=== PATIENT | male | born 1940 | race Caucasian/White ===

== ENCOUNTER 2019-10-17 07:43 | Inpatient (IN) ==
[2019-10-17] MEDS ORDERED: IOPAMIDOL 100 ML BOTTLE IV ONE (07:44)
[2019-10-17] MEDS ORDERED: 0.9 % SODIUM CHLORIDE 1,000 ML IV ONE ×2 (08:04→14:04)
--- NOTE | 2019-10-17 08:27 | Emergency Department Note ---
HPI General Chief complaint: Weakness Stated complaint: Weak and shaky Time Seen by Provider: 10/17/19 08:01 Source: EMS Mode of arrival: EMS Limitations: no limitations History of Present Illness HPI Narrative: This pleasant 79-year-old male comes the emergency room describing that about 1/2-hour after waking up he had an episode of shakiness that was involving his arms and legs and may be a little trunk. Duration lasted until he arrived here in a few minutes after. He has had no previous similar ep isodes. He did not feel ill. His only medication is cephalexin which he was taking for a dental abscess and extraction scheduled tomorrow. Sometimes his pain has been significant for this but only at night. Last night it actually seem to be a bit better. He did take his cephalexin and did take ibuprofen. He takes ibuprofen intermittently at times for some more shoulder neck pain. He denies a foul taste in his mouth. He denies fevers, chills, sweats. Related Data Home Medications Medication Instructions Recorded Confirmed cephalexin [Keflex] 500 mg PO BID 10/17/19 10/17/19 Allergies Allergy/AdvReac Type Severity Reaction Status Date / Time No Known Drug Allergies Allergy Verified 10/17/19 07:44 Review of Systems ROS Narrative: Denies chest pain palpitations Denies cough shortness of breath denies abdominal pain nausea vomiting diarrhea denies dysuria. Has mild or slight weakness he attributes to age. Has occasional dizziness. Had vertigo years ago. Denies anxiety and depression. [facility] Narrative Patient History Narrative: NEGATIVE FOR MEDICAL HISTORY OF: Cancer hypertension (usually is low), myocardial infarction, DVT, PE, CVA, TIA, anxiety, depression. Medical/Surgical/Family History All Active Problems (Updated 10/17/19 @ 08:47 by Thomas Duron DO) Shakiness (Acute) Abnormal ECG (Acute) Sinus tachycardia (Acute) Surgical History (Updated 10/17/19 @ 08:24 by Thomas Duron DO) History of left knee surgery (Acute 1955) Cartilage repair or removal Social History Smoking Status: Smokeless tobacco Exam Narrative Narrative: Narrative: General Limitations: no limitations General appearance: alert, in no apparent distress and nontoxic Head Head: atraumatic and normocephalic Eye Eye: Present normal appearance, PERRL and EOMI ENT ENT: Present normal oropharynx, mucous membranes moist and other (Small particles of oral chewing tobacco present.) Neck Neck: Present trachea midline; Absent lymphadenopathy and thyromegaly Chest Chest: Present symmetric chest wall rise Respiratory Respiratory: Present normal lung sounds bilaterally; Absent respiratory distress, rales/crackles, wheezes, stridor, accessory muscle use and prolonged expiratory phase Cardiovascular Cardiovascular: Present regular rate, normal rhythm and tachycardia; Absent systolic murmur and diastolic murmur Adbominal Abdominal: Present soft; Absent distention, tenderness, guarding, rebound, rigidity, organomegaly and mass Extremities Extremities: Present normal capillary refill; Absent pedal edema, pretibial edema, calf tenderness and cyanosis Back Back: Absent CVA tenderness (R), CVA tenderness (L) and vertebral tenderness Neurological Neurological: Present alert and oriented X3 Psychiatric Psychiatric: Present normal affect, polite and pleasant; Absent depressed, agitated, anxious and poor eye contact Skin Skin: Present warm and dry; Absent cyanosis and pallor Course Vital Signs Vital signs: Vital Signs Temperature 98.2 F 10/17/19 07:45 Pulse Rate 104 H 10/17/19 07:45 Respiratory Rate 16 10/17/19 07:45 Blood Pressure 174/147 10/17/19 07:45 Pulse Oximetry (%) 100 10/17/19 07:45 Temperature 98.2 F 10/17/19 07:45 Pulse Rate 104 H 10/17/19 07:45 Respiratory Rate 16 10/17/19 07:45 Blood Pressure 174/147 10/17/19 07:45 Pulse Oximetry (%) 100 10/17/19 07:45 [facility] MDM Narrative Medical decision making narrative: Single episode of shakiness this morning with somewhat prolonged and no preceding sign or symptom. Is under treatment for a dental abscess. Will need to do some labs. Has accompanying tachycardia. EKG and chest x-ray also ordered as well as troponin. EKG demonstrates sinus tachycardia with repolarization abnormalities in the anterolateral leads. No old EKGs immediately available; possibly in [place]. 9:00 PM - due to change in shift, patient's care will be transferred to Dr. Sahu. Lab Data Result diagrams: 10/17/19 08:17 10/17/19 08:17 Discharge Plan Patient/Caregiver Discharge Instructions Pt seen by GLASS FURNACE TENDER/PA only: No Clinical Impression: Shakiness, Abnormal ECG, Sinus tachycardia Patient Disposition: Home, Self-Care Prescriptions: No Action cephalexin [Keflex] 500 mg Capsule 500 mg PO BID RF: 0
--- NOTE | 2019-10-17 09:01 | XRay Report ---
HISTORY: Increased weakness and shakiness FINDINGS: The lungs are clear and well-expanded. The heart size, pulmonary vasculature, mediastinum, martir and pleura are normal. IMPRESSION: Normal exam Interpreted and Authenticated by: Duong Reyes 10/17/19
[2019-10-17] MEDS ORDERED: ACETAMINOPHEN 325 MG TABLET PO ONE (09:07)
[2019-10-17 09:13] LABS: Basophils # (Auto) 0.02 K/mcL (0.00-0.30); Basophils % (Auto) 0.3 % (0.0-2.0); Eosinophils # (Auto) 0.04 K/mcL (0.00-0.70); Eosinophils % (Auto) 0.5 % (0.0-7.0); Granulocytes % (Auto) 90.8 % (38.0-78.0); Hematocrit 44.3 % (40.1-51.0); Hemoglobin 15.5 g/dL (13.7-17.5); Lymphocytes # (Auto) 0.55 K/mcL (1.50-4.80); Lymphocytes % (Auto) 7.3 % (15.5-49.0); Mean Cell Volume 94.3 fL (80.0-100.0); Mean Platelet Volume 9.5 fL (7.4-10.4); Monocytes # (Auto) 0.08 K/mcL (0.10-0.90); Monocytes % (Auto) 1.1 % (1.0-12.0); Platelet Count 142 K/mcL (140-440); Red Cell Distribution Width 13.4 % (11.5-14.5); WBC 7.6 K/mcL (4.50-11.00)
[2019-10-17 09:31] LABS: proBNP < 50.0 pg/ml (0-450)
[2019-10-17 09:35] LABS: ALT/SGPT 25 U/l (0-40); AST/SGOT 29 U/l (0-37); Albumin/Globulin Ratio 1.5 (1.0-2.3); Alkaline Phosphatase 85 U/L (39-117); Blood Urea Nitrogen 10 mg/dl (8-23); Calcium 9.4 mg/dl (8.6-10.4); Carbon Dioxide 20 mmol/L (22-30); Chloride 104 mmol/L (96-108); Globulin 2.7 gm/dL (2.2-3.7); Glomerular Filtration Rate 80; Glucose 170 mg/dL (70-105)
[2019-10-17] MEDS ORDERED: cefTRIAXone 1 GM VIAL IV ONE (10:36)
--- NOTE | 2019-10-17 12:22 | Emergency Department Note ---
HPI General Chief complaint: Weakness Stated complaint: Weak and shaky Time Seen by Provider: 10/17/19 08:01 Source: EMS Mode of arrival: EMS Limitations: no limitations History of Present Illness HPI Narrative: Narrative: Received this patient in checkout from Dr. Duron at shift change. I reviewed his note Briefly discussed with patient symptomatology. He denies any chest pain or recent illness. However he does note diaphoresis and chills this morning although he was not aware of his fever. Related Data Home Medications Medication Instructions Recorded Confirmed cephalexin [Keflex] 500 mg PO BID 10/17/19 10/17/19 Allergies Allergy/AdvReac Type Severity Reaction Status Date / Time No Known Drug Allergies Allergy Verified 10/17/19 07:44 Review of Systems ROS Narrative: Narrative: [facility] Narrative Patient History Narrative: Narrative: Medical/Surgical/Family History All Active Problems (Updated 10/17/19 @ 14:00 by Hussein Sahu MD) Sinus tachycardia (Acute) Abscess, dental (Acute) COVID-19 virus test result unknown (Acute) Sepsis associated hypotension (Acute) Surgical History (Updated 10/17/19 @ 08:24 by Thomas Duron DO) History of left knee surgery (Acute 1955) Cartilage repair or removal Social History Smoking Status: Smokeless tobacco Exam Narrative Narrative: Narrative: General Limitations: no limitations General appearance: alert, in no apparent distress and nontoxic Course Vital Signs Vital signs: Vital Signs Temperature 98.2 F 10/17/19 07:45 Pulse Rate 104 H 10/17/19 07:45 Respiratory Rate 16 10/17/19 07:45 Blood Pressure 174/147 10/17/19 07:45 Pulse Oximetry (%) 100 10/17/19 07:45 Temperature 100.6 F H 10/17/19 09:13 Pulse Rate 88 10/17/19 13:33 Respiratory Rate 19 10/17/19 13:33 Blood Pressure 104/55 10/17/19 13:33 Pulse Oximetry (%) 94 10/17/19 13:33 MDM MDM Narrative Medical decision making narrative: Narrative: After getting checkout from Dr. Duron, I reviewed the patient's chart. I also reevaluated the patient looked at his teeth. I do not see an obvious abscess to surgically drained today. He does have multiple caries and gingival inflammation. He clearly has a fever today at 100.6. He has been taking Keflex but his symptoms are getting worse. We will go ahead and give him a dose of Rocephin for the presumptive bacterial abscess/inflammation and test him for the COVID virus-keep him on precaution. It is noted the patient did not have a fever when he came in was initially seen and evaluated without precautions. The patient denies any chest pain or trouble breathing, only notes weakness and above-noted symptoms. I discussed the situation with Dr. Mike Gonzalez DDS -he has 3 offices and is in [place] today-the patient was going to get tooth pulled tomorrow up in [place]. Anyways Dr. Gonzalez and I felt the the patient should put this off until he recovers from the fever of unclear cause. Will order a urinalysis as well to further sort this out. Chest x-ray is normal and his labs do not look particularly worrisome. We will CT his face Laboratory shows no leukocytosis or lactic acidosis. CT scan of the face is hindered by dental metal fillings but from what he can see the radiologist noted no significant abscesses. Urinalysis was negative. So adjusted differential diagnosis is COVID virus infection versus other viral infection versus dental abscess. However on reevaluation his blood pressure had dropped-concern for sepsis. He had already received antibiotics. We will order blood culture and consult hospitalist Discussed with our hospitalist Dr. Leon and the patient. Hospitalist agreed to accept the patient. Lab Data Lab results reviewed: Yes I reviewed the patient's lab results. Result diagrams: 10/17/19 08:17 10/17/19 08:17 Labs: Lab Results 10/17/19 10/17/19 10/17/19 Range/Units 08:17 08:17 08:17 WBC 7.6 (4.50-11.00) K/mcL RBC 4.70 (4.63-6.08) M/mcL Hgb 15.5 (13.7-17.5) g/dL Hct 44.3 (40.1-51.0) % MCV 94.3 (80.0-100.0) fL MCH 33.0 (26.0-34.0) pg MCHC 35.0 (31.0-36.0) g/dL RDW 13.4 (11.5-14.5) % Plt Count 142 (140-440) K/mcL MPV 9.5 (7.4-10.4) fL Gran % 90.8 H (38.0-78.0) % Lymph % (Auto) 7.3 L (15.5-49.0) % [place] % (Auto) 1.1 (1.0-12.0) % Eos % (Auto) 0.5 (0.0-7.0) % Baso % (Auto) 0.3 (0.0-2.0) % Gran # 6.87 (1.80-8.00) K/mcL Lymph # (Auto) 0.55 L (1.50-4.80) K/mcL [place] # (Auto) 0.08 L (0.10-0.90) K/mcL Eos # (Auto) 0.04 (0.00-0.70) K/mcL Baso # (Auto) 0.02 (0.00-0.30) K/mcL VBG Lactic Acid 1.9 (0.5-2.0) mmol/L Sodium 139 (133-145) mmol/L Potassium 3.7 (3.3-5.1) mmol/L Chloride 104 (96-108) mmol/L Carbon Dioxide 20 L (22-30) mmol/L Anion Gap 15.0 (8-16) BUN 10 (8-23) mg/dl Creatinine 0.9 (0.7-1.2) mg/dl GFR Calculation 80 Glucose 170 H (70-105) mg/dL Calcium 9.4 (8.6-10.4) mg/dl Total Bilirubin 1.0 (0.0-1.0) mg/dL AST 29 (0-37) U/l ALT 25 (0-40) U/l Alkaline Phosphatase 85 (39-117) U/L Troponin T (0-0.03) ng/ml NT-Pro-B Natriuret Pep < 50.0 (0-450) pg/ml Total Protein 6.7 (5.9-8.4) gm/dL Albumin 4.0 (3.2-5.2) gm/dL Globulin 2.7 (2.2-3.7) gm/dL Albumin/Globulin Ratio 1.5 (1.0-2.3) Urine Color Urine Appearance Urine pH (5.0-9.0) Ur Specific [place] (1.000-1.035) Urine Protein (NEG) mg/dL Urine Glucose (UA) (NEG) mg/dL Urine Ketones (NEG) mg/dL Urine Occult Blood (<0.03) mg/dL Urine Nitrate (NEG) Urine Bilirubin (NEG) mg/dL Urine Urobilinogen (NEG) mg/dL Ur Leukocyte Esterase (NEG) /uL Urine RBC (0-1) /hpf Urine WBC (0-4) /hpf Ur Squamous Epith Cells (0-4) /hpf Urine Bacteria (0) /hpf Hyaline Casts (0-2) /lpf Urine Mucus (0) /hpf Ur Culture Indicated? 10/17/19 10/17/19 Range/Units 08:17 10:57 WBC (4.50-11.00) K/mcL RBC (4.63-6.08) M/mcL Hgb (13.7-17.5) g/dL Hct (40.1-51.0) % MCV (80.0-100.0) fL MCH (26.0-34.0) pg MCHC (31.0-36.0) g/dL RDW (11.5-14.5) % Plt Count (140-440) K/mcL MPV (7.4-10.4) fL Gran % (38.0-78.0) % Lymph % (Auto) (15.5-49.0) % [place] % (Auto) (1.0-12.0) % Eos % (Auto) (0.0-7.0) % Baso % (Auto) (0.0-2.0) % Gran # (1.80-8.00) K/mcL Lymph # (Auto) (1.50-4.80) K/mcL [place] # (Auto) (0.10-0.90) K/mcL Eos # (Auto) (0.00-0.70) K/mcL Baso # (Auto) (0.00-0.30) K/mcL VBG Lactic Acid (0.5-2.0) mmol/L Sodium (133-145) mmol/L Potassium (3.3-5.1) mmol/L Chloride (96-108) mmol/L Carbon Dioxide (22-30) mmol/L Anion Gap (8-16) BUN (8-23) mg/dl Creatinine (0.7-1.2) mg/dl GFR Calculation Glucose (70-105) mg/dL Calcium (8.6-10.4) mg/dl Total Bilirubin (0.0-1.0) mg/dL AST (0-37) U/l ALT (0-40) U/l Alkaline Phosphatase (39-117) U/L Troponin T < 0.01 (0-0.03) ng/ml NT-Pro-B Natriuret Pep (0-450) pg/ml Total Protein (5.9-8.4) gm/dL Albumin (3.2-5.2) gm/dL Globulin (2.2-3.7) gm/dL Albumin/Globulin Ratio (1.0-2.3) Urine Color Yellow Urine Appearance Clear Urine pH 5.0 (5.0-9.0) Ur Specific [place] 1.014 (1.000-1.035) Urine Protein Neg (NEG) mg/dL Urine Glucose (UA) Negative (NEG) mg/dL Urine Ketones 5/tr A (NEG) mg/dL Urine Occult Blood Neg (<0.03) mg/dL Urine Nitrate Neg (NEG) Urine Bilirubin Neg (NEG) mg/dL Urine Urobilinogen Neg (NEG) mg/dL Ur Leukocyte Esterase Neg (NEG) /uL Urine RBC 1 (0-1) /hpf Urine WBC 2 (0-4) /hpf Ur Squamous Epith Cells 1 (0-4) /hpf Urine Bacteria 0 (0) /hpf Hyaline Casts 5 H (0-2) /lpf Urine Mucus Mod (0) /hpf Ur Culture Indicated? No Radiology Data Radiology results reviewed: Yes I reviewed the patient's radiology results. Radiology results narrative: Chest x-ray is normal CT scan of the face shows no acute abscess but multiple areas are obscured by dental metal fillings EKG Data EKG #1: EKG attestation: Yes I reviewed and interpreted this EKG. EKG results narrative: EKG #[address] depression in V4 through V6 this is nonspecific and could just indicate strain but he also has a in lead I and aVL. Not having chest pain or shortness of breath however. Troponin is likewise normal EKG #2: EKG attestation: Yes I reviewed and interpreted this EKG. EKG results narrative: EKG #2 is similar to the one but ST changes are less prominent in the anterolateral leads; again nonspecific Discharge Plan Patient/Caregiver Discharge Instructions Pt seen by MUTUEL CLERK/PA only: No Clinical Impression: Sinus tachycardia, COVID-19 virus test result unknown, Sepsis associated hypot ension, Abscess, dental Patient Disposition: Xfer As Inpt ([facility]) Prescriptions: No Action cephalexin [Keflex] 500 mg Capsule 500 mg PO BID RF: 0
[2019-10-17 12:30] LABS: Appearance,Urine CLEAR; Bacteria,Urine 0 /hpf (0); Bilirubin,Urine NEG (NEG); Color,Urine YELLOW; Culture Indicated,Urine NO; Glucose,Urine (UA) NEGATIVE (NEG); Ketones,Urine 5/TR mg/dL (NEG); Leukocyte Esterase,Urine NEG /uL (NEG); Mucus,Urine MOD /hpf (0); Nitrate,Urine NEG (NEG); Protein,Urine NEG (NEG); Specific Gravity,Urine 1.014 (1.000-1.035); Urine Blood NEG mg/dL (<0.03); Urine Hyaline Cast 5 /lpf (0-2); Urine RBC 1 /hpf (0-1); Urine Squamous Epithelial Cell 1 /hpf (0-4); Urine WBC 2 /hpf (0-4); Urobilinogen,Urine NEG (NEG)
--- NOTE | 2019-10-17 13:20 | Cat Scan Report ---
History: Dental abscess and fever TECHNIQUE: The face was imaged following injection of intravenous contrast at 2.5 mm intervals. Sagittal and coronal reformats were created. The radiation exposure was limited using dose reduction technology. FINDINGS: There are numerous large metal caps and amalgam in the teeth in both maxilla and mandible. This is causing significant beam hardening artifact and limits evaluation of the teeth. No dental abscess can be clearly identified. There is no evidence of a soft tissue abscess in the face. No abnormally enlarged lymph nodes are present. The sinuses are clear normally aerated. The parapharyngeal spaces are normal. Incidentally noted are unerupted third molars in both sides of the mandible. 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 Patient has spinal canal stenosis at C5-6 and there is severe stenosis of the neural foramina bilaterally at site C5-6. There is moderate stenosis of the left-sided neural foramen at C4-5 and moderate stenosis bilaterally at C3-4. No enhancing lesion is seen in the neck and face or visualized portion of the brain. IMPRESSION: No evidence of facial abscess. Infection around a tooth cannot be clearly identified due to metal in the mouth Neural foraminal and central canal stenosis in the upper cervical spine Interpreted and Authenticated by: Duong Reyes 10/17/19
--- NOTE | 2019-10-17 14:44 | Internal Med History&Physical ---
HPI History of Present Illness Patient information: Note initiated : 10/17/19 at 2:35 pm Service Date, if different from initiated Date: [] Patient: Fausto Hess a 79 y/o M admitted on for Deb and Sathyaky. Chief Complaint: [] History of present illness: Mr. Hess is a 79 year old M Who presents the ED after shaking chills. Patient reports that he saw his dentist about a week ago for a tooth infection and was evaluated and started on Keflex for 7-day course. His tooth typically been bothering him but finally started to feel better and last night it finally did not bother him as typically does. He woke up feeling fine. However while sitting down drinking this morning drinking his coffee he had significant shivering and then put on a blanket and still had shivering. In the ED he was evaluated and had essentially unremarkable laboratory. However he did have a fever of 100.6. His blood pressure initially was 128 systolic and then subsequent was in the 90s and then did bump up to the 110s again in a dropped down to 86. And the ED p hysician was worried about developing sepsis and requested admission. Patient denies any nausea or vomiting or abdominal pain or diarrhea since the antibiotics started. Denies any urinary normalities. He denies any chest pain coughing or shortness of breath or any other respiratory symptoms. Review of Systems: Pertinent positives as above. Denies headache/nausea/vomiting/chest or abdominal pain/cough/dyspnea/diarrhea. Remaining 10 point review of system reviewed negative PFSH PFSH Surgical History (Updated 10/17/19 @ 08:24 by Thomas Duron DO) History of left knee surgery (Acute 1955) Cartilage repair or removal Social History (Updated 10/17/19 @ 14:40 by Raul Leon DO) smoking status: Smokeless tobacco additional history: Past medical history: BPH Family history: Mother had asthma and father is healthy Social history: Patient uses smokeless tobacco Has 2-3 beers per week Lives at home with his MEDS/ALLERGIES Home Medications and Allergies Home Medications Medication Instructions Recorded Confirmed Type cephalexin [Keflex] 500 mg PO BID 10/17/19 10/17/19 History Allergies Allergy/AdvReac Type Severity Reaction Status Date / Time No Known Drug Allergies Allergy Verified 10/17/19 07:44 EXAM Constitutional Vitals: Temp Pulse Resp BP Pulse Ox 100.6 F H 88 19 105/58 94 10/17/19 09:13 10/17/19 13:33 10/17/19 13:33 10/17/19 14:02 10/17/19 13:33 Exam: General: Alert, Awake, No acute Distress Eyes/N/T: EOMI, PERRL, Head/Neck: neck supple, normocephalic atraumatic CV: RRR, No murmurs, normal s1/s2 Pulm: Clear b/l, no wheezing/rhonchi/rales Abd: soft, nontender, +BS x4 Ext: no clubbing/cyanosis/edema Neuro: Alert, no focal deficits, moves all extremities, CN 2-12 grossly intact, symmetrical strength b/l upper/lower, sensations intact b/l upper/lower Skin: warm/dry DATA Data Completed and Pending Labs on day of discharge: Labs from last 24 hours 10/17/19 10/17/19 10/17/19 14:11 14:11 10:57 WBC RBC Hgb Hct MCV MCH MCHC RDW Plt Count MPV Gran % Lymph % (Auto) [place] % (Auto) Eos % (Auto) Baso % (Auto) Gran # Lymph # (Auto) [place] # (Auto) Eos # (Auto) Baso # (Auto) Total Counted Pending Band Neutrophils % Not Reportable Platelet Estimate Pending RBC Morphology Pending VBG Lactic Acid Sodium Potassium Chloride Carbon Dioxide Anion Gap BUN Creatinine GFR Calculation Glucose Calcium Total Bilirubin AST ALT Alkaline Phosphatase Troponin T C-Reactive Protein Pending NT-Pro-B Natriuret Pep Total Protein Albumin Globulin Albumin/Globulin Ratio Urine Color Yellow Urine Appearance Clear Urine pH 5.0 Ur Specific [place] 1.014 Urine Protein Neg Urine Glucose (UA) Negative Urine Ketones 5/tr A Urine Occult Blood Neg Urine Nitrate Neg Urine Bilirubin Neg Urine Urobilinogen Neg Ur Leukocyte Esterase Neg Urine RBC 1 Urine WBC 2 Ur Squamous Epith Cells 1 Urine Bacteria 0 Hyaline Casts 5 H Urine Mucus Mod Ur Culture Indicated? No Nasal/Oral COVID-19 PCR COVID-19 PCR Interp 10/17/19 10/17/19 10/17/19 10:22 08:17 08:17 WBC RBC Hgb Hct MCV MCH MCHC RDW Plt Count MPV Gran % Lymph % (Auto) [place] % (Auto) Eos % (Auto) Baso % (Auto) Gran # Lymph # (Auto) [place] # (Auto) Eos # (Auto) Baso # (Auto) Total Counted Band Neutrophils % Platelet Estimate RBC Morphology VBG Lactic Acid 1.9 Sodium Potassium Chloride Carbon Dioxide Anion Gap BUN Creatinine GFR Calculation Glucose Calcium Total Bilirubin AST ALT Alkaline Phosphatase Troponin T < 0.01 C-Reactive Protein NT-Pro-B Natriuret Pep Total Protein Albumin Globulin Albumin/Globulin Ratio Urine Color Urine Appearance Urine pH Ur Specific [place] Urine Protein Urine Glucose (UA) Urine Ketones Urine Occult Blood Urine Nitrate Urine Bilirubin Urine Urobilinogen Ur Leukocyte Esterase Urine RBC Urine WBC Ur Squamous Epith Cells Urine Bacteria Hyaline Casts Urine Mucus Ur Culture Indicated? Nasal/Oral COVID-19 PCR Pending COVID-19 PCR Interp Pending 10/17/19 10/17/19 08:17 08:17 WBC 7.6 RBC 4.70 Hgb 15.5 Hct 44.3 MCV 94.3 MCH 33.0 MCHC 35.0 RDW 13.4 Plt Count 142 MPV 9.5 Gran % 90.8 H Lymph % (Auto) 7.3 L [place] % (Auto) 1.1 Eos % (Auto) 0.5 Baso % (Auto) 0.3 Gran # 6.87 Lymph # (Auto) 0.55 L [place] # (Auto) 0.08 L Eos # (Auto) 0.04 Baso # (Auto) 0.02 Total Counted Band Neutrophils % Platelet Estimate RBC Morphology VBG Lactic Acid Sodium 139 Potassium 3.7 Chloride 104 Carbon Dioxide 20 L Anion Gap 15.0 BUN 10 Creatinine 0.9 GFR Calculation 80 Glucose 170 H Calcium 9.4 Total Bilirubin 1.0 AST 29 ALT 25 Alkaline Phosphatase 85 Troponin T C-Reactive Protein NT-Pro-B Natriuret Pep < 50.0 Total Protein 6.7 Albumin 4.0 Globulin 2.7 Albumin/Globulin Ratio 1.5 Urine Color Urine Appearance Urine pH Ur Specific [place] Urine Protein Urine Glucose (UA) Urine Ketones Urine Occult Blood Urine Nitrate Urine Bilirubin Urine Urobilinogen Ur Leukocyte Esterase Urine RBC Urine WBC Ur Squamous Epith Cells Urine Bacteria Hyaline Casts Urine Mucus Ur Culture Indicated? Nasal/Oral COVID-19 PCR COVID-19 PCR Interp A/P Narrative A/P Narrative: A: *Fever/sepsis: Source likely dental infection -Facial CT no abscess but could not rule out infection immediately around any teeth because of metal fillings. -was on keflex outpt for 7-days -CXR/UA unremarkable, no abd pain/GI or respiratory symptoms *Hypotension: 2/2 above, transient *BPH: P: -zosyn, await cx -mrsa pcr -ivf -check man diff and crp - -ppx: lovenox DNR Time Spent With Patient Time: Total time spent is greater than 50% in coordination of care (as documented) at patient's floor/unit and/or counseling patient:
[2019-10-17 15:45] LABS: Band Neutrophils % 22 % (0-10); Lymphocytes % 4 % (15-49); Monocytes % (Manual) 8 % (1-12); Platelet Estimate DECREASED (NORMAL); RBC Morphology NORMAL (NORMAL); Segmented Neutrophils % 66 % (38-78)
[2019-10-17] MEDS ORDERED: 0.9 % SODIUM CHLORIDE 1,000 ML IV SCH (16:05)
[2019-10-17] MEDS ORDERED: MAGNESIUM SULFATE 2 GM/50 ML BAG IV PRN (16:05)
[2019-10-17] MEDS ORDERED: PIPERACILLIN SODIUM/TAZOBACTAM 3.375 GM in DEXTROSE 5% IN WATER 50 ML IV SCH (16:05)
[2019-10-17] MEDS ORDERED: POTASSIUM CHLORIDE 40 MEQ in DEXTROSE 5% IN WATER 500 ML IV PRN (16:05)
[2019-10-17] MEDS ORDERED: POLYETHYLENE GLYCOL 3350 17 GM PACKET PO PRN (16:05)
[2019-10-17] MEDS ORDERED: POTASSIUM CHLORIDE 20 MEQ TABLET PO PRN ×2 (16:05)
[2019-10-17] MEDS ORDERED: ONDANSETRON 4 MG/2 ML VIAL IV PRN (16:05)
[2019-10-17] MEDS: 0.9 % SODIUM CHLORIDE 10 ML SYRINGE IV SCH (16:07)
[2019-10-17] MEDS: CEFEPIME 2 GM VIAL IV SCH (17:08)
[2019-10-17] MEDS: metroNIDAZOLE 500 MG/100 ML BAG IV SCH ×2 (17:08→22:55)
[2019-10-17] MEDS: ACETAMINOPHEN 325 MG TABLET PO PRN (18:49)
[2019-10-18] MEDS: 0.9 % SODIUM CHLORIDE 10 ML SYRINGE IV SCH ×4 (00:33→21:18)
[2019-10-18] MEDS: CEFEPIME 2 GM VIAL IV SCH ×3 (00:39→21:18)
[2019-10-18] MEDS: metroNIDAZOLE 500 MG/100 ML BAG IV SCH ×3 (05:33→21:18)
[2019-10-18] MEDS: ACETAMINOPHEN 325 MG TABLET PO PRN ×2 (05:40→20:25)
--- NOTE | 2019-10-18 07:14 | Internal Med Progress Note ---
SUBJECTIVE Subjective Patient information: Note initiated : 10/18/19 at 7:11 am Service Date, if different from initiated Date: [] Patient: Fausto Hess a 79 y/o M admitted on 10/17/19 for Weak and Shaky. Chief Complaint: [] Interval history: Narrative: Mr. Hess is a 79 year old M Who presents the ED after shaking chills. Patient reports that he saw his dentist about a week ago for a tooth infection and was evaluated and started on Keflex for 7-day course. His tooth typically been bothering him but finally started to feel better and last night it finally did not bother him as typically does. He woke up feeling fine. However while sitting down drinking this morning drinking his coffee he had significant shivering and then put on a blanket and still had shivering. In the ED he was evaluated and had essentially unremarkable laboratory. However he did have a fever of 100.6. His blood pressure initially was 128 systolic and then subsequent was in the 90s and then did bump up to the 110s again in a dropped down to 86. And the ED physician was worried about developing sepsis and requested admission. Patient denies any nausea or vomiting or abdominal pain or diarrhea since the antibiotics started. Denies any urinary normalities. He denies any chest pain coughing or shortness of breath or any other respiratory symptoms. 10/17 Slept relatively well last night. Feeling little better. No shaking chills this morning. Intermittent fever overnight. Morning labs pending. Yesterday's labs showed no leukocytosis but did show e levated bands. Constitutional Vitals: Vital Signs Temp Pulse Resp BP Pulse Ox 101.0 F H 73 16 106/61 94 10/18/19 05:40 10/18/19 04:22 10/17/19 16:04 10/18/19 04:01 10/18/19 04:22 Period Temp Pulse Resp BP Sys/Zamudio Pulse Ox Last 24 Hr 97.3 F-102.2 F 71-116 10-26 79-174/38-147 92-100 Intake and Output 10/17/19 10/18/19 10/18/19 21:59 05:59 13:59 Intake Total 1100 100 100 Output Total 300 250 Balance 800 -150 100 Weight 84.368 kg Intake & Output: Intake & Output 10/17/19 10/18/19 10/18/19 21:59 05:59 13:59 Intake Total 1100 100 100 Output Total 300 250 Balance 800 -150 100 Weight 84.368 kg Intake: IV 1100 100 100 Sodium Chloride 0.9% 1,000 ml @ 1000 Wide Open IV BOLUS ONE Rx#: [id number] Output: Void Amount 300 250 Other: Urine Appearance Clear Clear Urine Color Dark Yellow Dark Yellow # Voids 1 Exam: General: Alert, Awake, No acute Distress Eyes/N/T: EOMI, Head/Neck: neck supple, CV: RRR, 1/6 SM Pulm: Clear b/l, no wheezing/rhonchi/rales Abd: soft, nontender, +BS x4 Ext: no clubbing/cyanosis/edema Neuro: Alert, no focal deficits, moves all extremities, Skin: warm/dry OBJ DATA Labs CBC & Chem 7: 10/17/19 08:17 10/17/19 08:17 Labs: Abnormal Lab Results 10/17/19 10/17/19 10/17/19 14:11 14:11 10:57 Gran % Lymph % (Auto) Lymph # (Auto) [place] # (Auto) Band Neutrophils % 22 H Lymphocytes % 4 L Platelet Estimate Decreased A Carbon Dioxide Glucose C-Reactive Protein 1.8 H Urine Ketones 5/tr A Hyaline Casts 5 H 10/17/19 10/17/19 08:17 08:17 Gran % 90.8 H Lymph % (Auto) 7.3 L Lymph # (Auto) 0.55 L [place] # (Auto) 0.08 L Band Neutrophils % Lymphocytes % Platelet Estimate Carbon Dioxide 20 L Glucose 170 H C-Reactive Protein Urine Ketones Hyaline Casts Meds: Medications Acetaminophen (Tylenol) 650 mg PO Q6HP PRN PRN Reason: PAIN/FEVER > 101 Last Admin: 10/18/19 05:40 Dose: 650 mg Documented by: Cefepime HCl (Maxipime) 2 gm IV Q12H [facility] Last Admin: 10/18/19 00:39 Dose: 2 gm Documented by: Enoxaparin Sodium (Lovenox) 40 mg SQ DAILY [facility] Potassium Chloride 40 meq/ (Dextrose) 520 mls @ 130 mls/hr IV UD PRN PRN Reason: Potassium < 3 Magnesium Sulfate (Magnesium Sulfate) 2 gm in 50 mls @ 50 mls/hr IV UD PRN PRN Reason: Magnesium </= 1.6 Metronidazole (Flagyl) 500 mg in 100 mls @ 100 mls/hr IV Q8H [facility] Last Infusion: 10/18/19 06:48 Dose: Infused Documented by: Ondansetron HCl (Zofran) 4 mg IV Q4HP PRN PRN Reason: Nausea And Vomiting Polyethylene Glycol (Miralax) 17 gm PO DAILYP PRN PRN Reason: Constipation Last Admin: 10/17/19 19:45 Dose: 17 gm Documented by: Potassium Chloride (Kdur) 40 meq PO UD PRN PRN Reason: Potssium is 3-3.5 Potassium Chloride (Kdur) 40 meq PO UD PRN PRN Reason: Potassium < 3 Sodium Chloride (Saline Flush) 10 ml IV Q8 [facility] Last Admin: 10/18/19 05:33 Dose: Not Given Documented by: A/P Narrative A/P Narrative: A: *Fever/Sepsis: Source likely dental infection -Facial CT no abscess but could not rule out infection immediately around any teeth because of metal fillings. -was on keflex outpt for 7-days -CXR/UA unremarkable, no abd pain/GI or respiratory symptoms -bandemia *Hypotension, transient: 2/2 above, responded to IVF, systolic 90's-110's, pt says BP runs somewhat low normally *BPH: P: -Cefepime/Flagyl, await cx -mrsa pcr neg -ivf - -ppx: lovenox DNR Time Spent With Patient Time: Total time spent is greater than 50% in coordination of care (as documented) at patient's floor/unit and/or counseling patient: QUALITY Stroke Symptom Onset Unknown: No VTE Deep Vein Thrombosis/Pulmonary Embolism Present on Admission: No
[2019-10-18 07:52] LABS: ALT/SGPT 19 U/l (0-40); AST/SGOT 27 U/l (0-37); Albumin 3.2 gm/dL (3.2-5.2); Albumin/Globulin Ratio 1.3 (1.0-2.3); Alkaline Phosphatase 51 U/L (39-117); Bilirubin,Direct < 0.2 mg/dL (0.0-0.3); Bilirubin,Total 0.4 mg/dL (0.0-1.0); Blood Urea Nitrogen 11 mg/dl (8-23); Calcium 8.2 mg/dl (8.6-10.4); Carbon Dioxide 20 mmol/L (22-30); Chloride 106 mmol/L (96-108); Globulin 2.4 gm/dL (2.2-3.7); Glomerular Filtration Rate 80; Glucose 123 mg/dL (70-105); Lactate Dehydrogenase 180 U/L (94-250); Triglycerides 122 mg/dl (<150)
[2019-10-18] MEDS ORDERED: 0.9 % SODIUM CHLORIDE 500 ML IV ONE (07:55)
[2019-10-18 08:02] LABS: Phosphorous 2.3 mg/dL (2.7-4.5)
[2019-10-18 08:51] LABS: Band Neutrophils % 1 % (0-10); Lymphocytes % 5 % (15-49); Monocytes % (Manual) 3 % (1-12); Platelet Estimate DECREASED (NORMAL); RBC Morphology NORMAL (NORMAL); Segmented Neutrophils % 91 % (38-78)
[2019-10-18 08:52] LABS: Hematocrit 39.7 % (40.1-51.0); Hemoglobin 13.1 g/dL (13.7-17.5); Mean Cell Volume 98.3 fL (80.0-100.0); Platelet Count 105 K/mcL (140-440); RBC 4.04 M/mcL (4.63-6.08); Red Cell Distribution Width 14.6 % (11.5-14.5)
[2019-10-18] MEDS: ASPIRIN 81 MG TAB.CHEW PO SCH (10:06)
[2019-10-18] MEDS: ENOXAPARIN 40 MG/0.4 ML SYRINGE SQ SCH (10:06)
[2019-10-18] MEDS: DUTASTERIDE 0.5 MG CAPSULE PO SCH (10:06)
[2019-10-19] MEDS: metroNIDAZOLE 500 MG/100 ML BAG IV SCH (05:45)
[2019-10-19] MEDS: 0.9 % SODIUM CHLORIDE 10 ML SYRINGE IV SCH (05:46)
[2019-10-19 06:33] LABS: Hematocrit 38.3 % (40.1-51.0); Hemoglobin 12.9 g/dL (13.7-17.5); Mean Cell Volume 97.2 fL (80.0-100.0); Mean Corpuscular HGB Conc 33.7 g/dL (31.0-36.0); Mean Platelet Volume 10.2 fL (7.4-10.4); Platelet Count 97 K/mcL (140-440); RBC 3.94 M/mcL (4.63-6.08); Red Cell Distribution Width 14.6 % (11.5-14.5); WBC 7.6 K/mcL (4.50-11.00)
[2019-10-19 06:38] LABS: Blood Urea Nitrogen 10 mg/dl (8-23); Calcium 8.5 mg/dl (8.6-10.4); Carbon Dioxide 21 mmol/L (22-30); Chloride 103 mmol/L (96-108); Glomerular Filtration Rate 84; Glucose 121 mg/dL (70-105)
--- NOTE | 2019-10-19 07:14 | Internal Med Progress Note ---
SUBJECTIVE Subjective Patient information: Note initiated : 10/19/19 at 7:10 am Service Date, if different from initiated Date: [] Patient: Fausto Hess a 79 y/o M admitted on 10/17/19 for Weak and Shaky. Chief Complaint: [] Interval history: Narrative: Mr. Hess is a 79 year old M Who presents the ED after shaking chills. Patient reports that he saw his dentist about a week ago for a tooth infection and was evaluated and started on Keflex for 7-day course. His tooth typically been bothering him but finally started to feel better and last night it finally did not bother him as typically does. He woke up feeling fine. However while sitting down drinking this morning drinking his coffee he had significant shivering and then put on a blanket and still had shivering. In the ED he was evaluated and had essentially unremarkable laboratory. However he did have a fever of 100.6. His blood pressure initially was 128 systolic and then subsequent was in the 90s and then did bump up to the 110s again in a dropped down to 86. And the ED p hysician was worried about developing sepsis and requested admission. Patient denies any nausea or vomiting or abdominal pain or diarrhea since the antibiotics started. Denies any urinary normalities. He denies any chest pain coughing or shortness of breath or any other respiratory symptoms. 7/2 Slept relatively well last night. Feeling little better. No shaking chills this morning. Intermittent fever overnight. Morning labs pending. Yesterday's labs showed no leukocytosis but did show el evated bands. 7/3 Feeling a little bit better. No fevers overnight. No tooth pain. Leukocytosis and bandemia resolved. Review of Systems: denies headache/fever/chills/nausea/vomiting/chest or abdominal pain/cough/dyspnea/diarrhea. Otherwise see above. Constitutional Vitals: Vital Signs Temp Pulse Resp BP Pulse Ox 97.8 F 73 16 110/53 97 10/19/19 06:01 10/18/19 04:22 10/18/19 18:24 10/19/19 04:02 10/19/19 04:33 Period Temp Pulse Resp BP Sys/Zamudio Pulse Ox Last 24 Hr 97.8 F-100.2 F 16-18 82-119/37-74 95-100 Intake and Output 10/18/19 10/19/19 10/19/19 21:59 05:59 13:59 Intake Total 1000 520 Output Total 500 650 Balance 500 -130 Weight 83.915 kg Intake & Output: Intake & Output 10/18/19 10/19/19 10/19/19 21:59 05:59 13:59 Intake Total 1000 520 Output Total 500 650 Balance 500 -130 Weight 83.915 kg Intake: IV 100 100 Oral 900 420 Output: Void Amount 500 650 Other: Meal Dinner Percent of Meal Consumed 25% Feeding Ability Independent Urine Appearance Clear Clear Urine Color Dark Yellow Dark Yellow Urine Odor Normal Foul Stool Size Moderate Stool Color Brown Stool Consistency Normal for Patient Soft Formed # Voids 1 Exam: General: Alert, Awake, No acute Distress Eyes/N/T: EOMI, Head/Neck: neck supple, CV: RRR, 1/6 SM Pulm: Clear b/l, no wheezing/rhonchi/rales Abd: soft, nontender, +BS x4 Ext: no clubbing/cyanosis/edema Neuro: Alert, no focal deficits, moves all extremities, Skin: warm/dry OBJ DATA Labs CBC & Chem 7: 10/19/19 04:53 10/19/19 04:53 Labs: Abnormal Lab Results 10/19/19 10/19/19 10/18/19 04:53 04:53 04:38 WBC RBC 3.94 L Hgb 12.9 L Hct 38.3 L RDW 14.6 H Plt Count 97 L Gran % Lymph % (Auto) Lymph # (Auto) [place] # (Auto) Seg Neutrophils % Band Neutrophils % Lymphocytes % Platelet Estimate Carbon Dioxide 21 L 20 L Glucose 121 H 123 H Calcium 8.5 L 8.2 L Phosphorus 2.3 L C-Reactive Protein Total Protein 5.6 L Urine Ketones Hyaline Casts 10/18/19 10/17/19 10/17/19 04:38 14:11 14:11 WBC 13.0 H RBC 4.04 L Hgb 13.1 L Hct 39.7 L RDW 14.6 H Plt Count 105 L Gran % Lymph % (Auto) Lymph # (Auto) [place] # (Auto) Seg Neutrophils % 91 H Band Neutrophils % 22 H Lymphocytes % 5 L 4 L Platelet Estimate Decreased A Decreased A Carbon Dioxide Glucose Calcium Phosphorus C-Reactive Protein 1.8 H Total Protein Urine Ketones Hyaline Casts 10/17/19 10/17/19 10/17/19 10:57 08:17 08:17 WBC RBC Hgb Hct RDW Plt Count Gran % 90.8 H Lymph % (Auto) 7.3 L Lymph # (Auto) 0.55 L [place] # (Auto) 0.08 L Seg Neutrophils % Band Neutrophils % Lymphocytes % Platelet Estimate Carbon Dioxide 20 L Glucose 170 H Calcium Phosphorus C-Reactive Protein Total Protein Urine Ketones 5/tr A Hyaline Casts 5 H Meds: Medications Acetaminophen (Tylenol) 650 mg PO Q6HP PRN PRN Reason: PAIN/FEVER > 101 Last Admin: 10/18/19 20:25 Dose: 650 mg Documented by: Aspirin (Aspirin) 81 mg PO QDAY [facility] Last Admin: 10/18/19 10:06 Dose: 81 mg Documented by: Cefepime HCl (Maxipime) 2 gm IV Q12H [facility] Last Admin: 10/18/19 21:18 Dose: 2 gm Documented by: Dutasteride (Avodart) 0.5 mg PO DAILY [facility] Last Admin: 10/18/19 10:06 Dose: 0.5 mg Documented by: Enoxaparin Sodium (Lovenox) 40 mg SQ DAILY [facility] Last Admin: 10/18/19 10:06 Dose: 40 mg Documented by: Potassium Chloride 40 meq/ (Dextrose) 520 mls @ 130 mls/hr IV UD PRN PRN Reason: Potassium < 3 Magnesium Sulfate (Magnesium Sulfate) 2 gm in 50 mls @ 50 mls/hr IV UD PRN PRN Reason: Magnesium </= 1.6 Metronidazole (Flagyl) 500 mg in 100 mls @ 100 mls/hr IV Q8H [facility] Last Admin: 10/19/19 05:45 Dose: 100 mls/hr Documented by: Ondansetron HCl (Zofran) 4 mg IV Q4HP PRN PRN Reason: Nausea And Vomiting Polyethylene Glycol (Miralax) 17 gm PO DAILYP PRN PRN Reason: Constipation Last Admin: 10/17/19 19:45 Dose: 17 gm Documented by: Potassium Chloride (Kdur) 40 meq PO UD PRN PRN Reason: Potssium is 3-3.5 Potassium Chloride (Kdur) 40 meq PO UD PRN PRN Reason: Potassium < 3 Sodium Chloride (Saline Flush) 10 ml IV Q8 [facility] Last Admin: 10/19/19 05:46 Dose: 10 ml Documented by: A/P Narrative A/P Narrative: A: *Fever/Sepsis: Source likely dental infection -Facial CT no abscess but could not rule out infection immediately around any teeth because of metal fillings. -was on keflex outpt for 7-days -CXR/UA unremarkable, no abd pain/GI or respiratory symptoms -leukocytosis/bandemia resolved, -afebrile o/n -BC's neg *Hypotension, transient: 2/2 above, responded to IVF, systolic 90's-110's, pt says BP runs somewhat low normally *BPH: P: -Cefepime/Flagyl, await cx -mrsa pcr neg - -ppx: lovenox DNR Time Spent With Patient Time: Total time spent is greater than 50% in coordination of care (as documented) at patient's floor/unit and/or counseling patient: QUALITY Stroke Symptom Onset Unknown: No VTE Deep Vein Thrombosis/Pulmonary Embolism Present on Admission: No
[2019-10-19 07:20] LABS: Eosinophils % (Manual) 1 % (0-7); Lymphocytes % 12 % (15-49); Monocytes % (Manual) 7 % (1-12); Platelet Estimate DECREASED (NORMAL); RBC Morphology NORMAL (NORMAL); Segmented Neutrophils % 80 % (38-78)
[2019-10-19] MEDS: DUTASTERIDE 0.5 MG CAPSULE PO SCH (08:33)
[2019-10-19] MEDS: ASPIRIN 81 MG TAB.CHEW PO SCH (08:33)
[2019-10-19] MEDS: ENOXAPARIN 40 MG/0.4 ML SYRINGE SQ SCH (08:34)
[2019-10-19] MEDS: CEFEPIME 2 GM VIAL IV SCH (08:34)
--- NOTE | 2019-10-19 09:52 | Discharge Summary ---
Discharge Provider Provider Patient information: Note initiated : 10/19/19 at 9:51 am Service Date, if different from initiated Date: [] Patient: Fausto Hess 79 y/o M admitted on 10/17/19 for Weak and Shaky. Chief Complaint: [] Date of admission: 10/17/19 15:50 Discharge date: 10/19/19 Consults: 10/17/19 Consult to Physician [CONS] Stat Comment: Consulting Provider: Raul Leon Reason For Exam: Physician to Consult Discharge Meds Discharge Medications Active and Home Medications: Home Medications ascorbic acid (vitamin C) 1,000 mg PO DAILY 10/17/19 [History Confirmed 10/17/19 Last Taken 10/15/19 08:00] aspirin 81 mg PO QDAY 10/17/19 [History Confirmed 10/17/19 Last Taken 10/16/19 08:00] cephalexin [Keflex] 500 mg PO BID 10/17/19 [History Confirmed 10/17/19 Last Taken 10/16/19 21:00] cholecalciferol (vitamin D3) [Vitamin D3] 25 mcg PO DAILY 10/17/19 [History Confirmed 10/17/19 Last Taken 10/15/19 08:00] dutasteride [Avodart] 0.5 mg PO DAILY 10/17/19 [History Confirmed 10/17/19 Last Taken 10/16/19 08:00] multivitamin [Daily Multi-Vitamin] 1 tab PO DAILY 10/17/19 [History Confirmed 10/17/19 Last Taken 10/15/19 08:00] vitamin B complex 1 tab PO QDAY 10/17/19 [History Confirmed 10/17/19 Last Taken 10/15/19 08:00] COURSE Hospital Course Hospital Course: Mr. Hess is a 79 year old M Who presents the ED after shaking chills. Patient reports that he saw his dentist about a week ago for a tooth infection and was evaluated and started on Keflex for 7-day course. His tooth typically been bothering him but finally started to feel better and last night it finally did not bother him as typically does. He woke up feeling fine. However while sitting down drinking this morning drinking his coffee he had significant shivering and then put on a blanket and still had shivering. In the ED he was evaluated and had essentially unremarkable laboratory. However he did have a fever of 100.6. His blood pressure initially was 128 systolic and then subsequent was in the 90s and then did bump up to the 110s again in a dropped down to 86. And the ED physician was worried about developing sepsis and requested admission. Patient denies any nausea or vomiting or abdominal pain or diarrhea since the antibiotics started. Denies any urinary normalities. He denies any chest pain coughing or shortness of breath or any other respiratory symptoms. 7/ Slept relatively well last night. Feeling little better. No shaking chills this morning. Intermittent fever overnight. Morning labs pending. Yesterday's labs showed no leukocytosis but did show elevated bands. 10/18 Feeling a little bit better. No fevers overnight. No tooth pain. Leukocytosis and bandemia resolved. *Fever/Sepsis: Source likely dental infection -Facial CT no abscess but could not rule out infection immediately around any teeth because of metal fillings. -was on keflex outpt for 7-days -CXR/UA unremarkable, no abd pain/GI or respiratory symptoms -leukocytosis/bandemia resolved, -afebrile o/n -BC's neg *Hypotension, transient: 2/2 above, responded to IVF, systolic 90's-110's, pt says BP runs somewhat low normally *BPH: Discharge diagnosis: Fever sepsis source likely dental infection Secondary discharge diagnosis: Transient hypotension BPH Time Spent with Patient Time attestation: Total time spent providing and/or coordinating discharge services: Time spent: Greater than 30 minutes EXAM Constitutional Vitals: Temp Pulse Resp BP Pulse Ox 96.9 F L 73 16 84/72 98 10/19/19 08:02 10/18/19 04:22 10/18/19 18:24 10/19/19 08:02 10/19/19 08:02 Discharge Data Data Completed and Pending Labs on day of discharge: Labs from last 24 hours 10/19/19 10/19/19 10/19/19 04:53 04:53 04:53 WBC 7.6 RBC 3.94 L Hgb 12.9 L Hct 38.3 L MCV 97.2 MCH 32.7 MCHC 33.7 RDW 14.6 H Plt Count 97 L MPV 10.2 Total Counted 100 Seg Neutrophils % 80 H Band Neutrophils % Not Reportable Lymphocytes % 12 L Monocytes % (Manual) 7 Eosinophils % (Manual) 1 Platelet Estimate Decreased A RBC Morphology Normal Sodium 135 Potassium 3.9 Chloride 103 Carbon Dioxide 21 L Anion Gap 11.0 BUN 10 Creatinine 0.8 GFR Calculation 84 Glucose 121 H Calcium 8.5 L Cortisol AM Sample 11.4 Preliminary micro results at discharge 10/17/19 13:49 Blood Culture - Preliminary Blood 10/17/19 13:57 Blood Culture - Preliminary Blood Discharge Plan Patient/Caregiver Discharge Instructions Activity: increase activity as tolerated Diet: Regular Diet Instructions: COVID-19, Dental Abscess (GEN), Sepsis (GEN) Activity Restrictions/Additional Instructions: This discharge packet is provided to you to help keep you informed about your care. We want to ensure you get everything you need when you go home. You will also be receiving a call from us in a few days to follow up with you and see how you are doing since your discharge. This gives us a chance to listen to any concerns you maybe experiencing since you were discharged or any additional needs you may have, as well as providing us feedback on your care experience. We strive to always provide excellent care and thank you for your feedback and for choosing [facility]. Follow up with your dentist as soon as possible. Prescriptions: New clindamycin HCl 300 mg capsule 450 mg PO TID Qty: 15 RF: 0 Lactobacillus acidophilus Capsule 2,000 mmu cells PO BID Qty: 14 RF: 0 No Action cephalexin [Keflex] 500 mg Capsule 500 mg PO BID RF: 0 multivitamin [Daily Multi-Vitamin] Tablet 1 tab PO DAILY RF: 0 ascorbic acid (vitamin C) 1,000 mg Tablet 1,000 mg PO DAILY RF: 0 aspirin 81 mg Tablet,Chewable 81 mg PO QDAY RF: 0 vitamin B complex Tablet 1 tab PO QDAY RF: 0 dutasteride [Avodart] 0.5 mg Capsule 0.5 mg PO DAILY RF: 0 cholecalciferol (vitamin D3) [Vitamin D3] 25 mcg (1,000 unit) Tablet 25 mcg PO DAILY RF: 0 Follow Up Plan Follow up with: Cesar Cordova PA-C [Physician Ski Lift Attendant] - 10/26/19 1:00 pm Patient Disposition: Hospice - Home Discharge Orders: Discharge Order (Routine); Ordered 10/19/19 Ordered By: Raul Leon [facility] VTE Deep Vein Thrombosis/Pulmonary Embolism Present on Admission: No
== END 2019-10-19 10:47 | disposition hospice, home (50) | DRG 872 ==
LOC: ED 07:43 → ICU 15:50
PROVIDERS: ADMIT Internal Medicine; ATTEND Internal Medicine